=== PATIENT | female | born 1985 | race Two or more races ===

== ENCOUNTER 2019-12-01 17:35 | Emergency (ER) | payer MEDICAID ==
[~2019-12-01] VITALS: Ht 154.9 cm; Wt 56.8 kg
[2019-12-01 19:23] VITALS: BP 121/76
== END 2019-12-01 19:25 | disposition home or self-care (01) ==
LOC: EMS 17:35
DX: R45.851 Suicidal ideations (principal); R45.1 Restlessness and agitation; F32.9 Major depressive disorder, single episode, unspecified